=== PATIENT | male | born 1995 | race Caucasian/White ===

== ENCOUNTER 2022-01-05 22:31 | Observation (INO) | payer OTHER ==
[~2022-01-05] VITALS: Ht 177.8 cm; Wt 94.2 kg
[2022-01-05] MEDS ORDERED: BASAGLAR K100 UNIT/1 SQ (22:46)
[2022-01-05] MEDS ORDERED: NOVOLOG FLEX100 U/ML SQ (22:47)
[2022-01-05 22:49] LABS: BASO # 0.1 K/mm3 (0.0-0.2); BASO % 0.4 % (0.0-2.0); EOS % 0.1 % (0.0-4.0); GRAN # 8.9 K/mm3 (1.4-6.5); GRAN % 73.5 % (42.2-75.2); HEMATOCRIT 44.6 % (42.0-52.0); HEMOGLOBIN 15.5 g/dl (13.5-18.0); LYMPH # 2.5 K/mm3 (1.2-3.4); LYMPH % 20.2 % (20.0-51.0); MEAN CELL VOLUME 86 fl (80.0-100.0); MEAN CORPUSCULAR HEMOGLOBIN 30 pg (27-31); MEAN CORPUSCULAR HGB CONC 35 g/dl (33.0-37.0); MEAN PLATELET VOLUME 9.5 fl (7.4-10.4); MONO # 0.7 K/mm3 (0.1-0.6); MONO % 5.5 % (1.7-9.3); PLATELET COUNT 269 K/mm3 (130-400); RED BLOOD COUNT 5.21 M/mm3 (4.20-5.60); REDCELL DISTRIBUTION WIDTH-CV 11.8 % (11.5-14.5)
[2022-01-05 23:05] LABS: ALBUMIN 4.4 gm/dL (3.5-5.0); BILIRUBIN,TOTAL 0.9 mg/dL (0.2-1.2); C-REACTIVE PROTEIN 1.6 mg/dL (0.00-0.50); CALCIUM 9.7 mg/dL (8.4-10.2); CREATININE, serum 1.06 mg/dL (0.72-1.25); POTASSIUM 4.5 mmol/L (3.5-4.5); TOTAL PROTEIN 7.6 gm/dL (6.2-8.1)
[2022-01-06] VITALS (9 sets, daily range): BP systolic 115–126; BP diastolic 55–68; PULSE 57–97; TEMP 97.7–99.5
[2022-01-06 00:47] LABS: COLLECTION METHOD CLEAN CATCH
[2022-01-06 00:57] LABS: URINE APPEARANCE Clear (CLEAR/HAZY); URINE BLOOD Negative (NEGATIVE); URINE COLOR Yellow (YELLOW); URINE GLUCOSE 3+ (NEGATIVE); URINE KETONE 4+ (NEGATIVE); URINE NITRATE Negative (NEGATIVE); URINE PROTEIN(semi-quant) Negative (NEGATIVE); URINE UROBILINOGEN 0.2 E.U/dL (0.2-1.0)
[2022-01-06 00:59] LABS: MUCOUS Present (NOT PRESENT); SQUAMOUS EPITHELIAL None Seen /hpf (0-10); URINE BACTERIA Rare /hpf (NONE SEEN); URINE RBC 0-2 /hpf (0-2)
--- NOTE | 2022-01-06 03:20 | NUR ---
PT BROUGHT TO ROOM FROM ED. ADMISSION ASSESSMENT AND MED REC COMPLETE. PT RATES PN A 2/10 IN THE ABDOMEN. NS AND ZOSYN RUNNING IN RIGHT AC. NO NEEDS AT THIS TIME. CALL LIGHT WITHIN REACH.
--- NOTE | 2022-01-06 08:02 | NUR ---
Pt off the floor for surgery at this time
[2022-01-06] MEDS ORDERED: NORCO 325 MG-51 TAB PO (09:25)
[2022-01-06] MEDS ORDERED: MOTRIN 600600 MG/TAB PO (09:25)
--- NOTE | 2022-01-06 11:15 | NUR ---
Pt arrived back from surgery recently. He is drowsy but does wake easily. Pt is afraid of moving to due pain and the fact that he just had surgery. Educated him about the procedure, the incisions that he has and the importance of some activity. Pt wanted to use his own insulin which he has with him. Educated him on the criteria for him to go home. Lap sites x3 to abd with 2 well approximated and one with small gauze and tegaderm which is CDI. All questions answered, call light within reach
--- NOTE | 2022-01-06 13:10 | NUR ---
Pt doing well, but is still drowsy. Pt has been up and voided and has tolerated some lunch. He is wanting to stay a while to get a nap in. Pt had friend go and supervisor opening and picking his prescriptions for him. No other needs, PRN pain medication given
--- NOTE | 2022-01-06 15:00 | NUR ---
PT resting with eyes closed, even non labored breathing. Friend in room at this time
--- NOTE | 2022-01-06 15:51 | NUR ---
Pt resting with eyes closed, even non labored breathing, friend available in room
--- NOTE | 2022-01-06 16:45 | NUR ---
PT ready for discharge. Pt reports that his pain is a constant 5/10. Did get some mortrin for him prior to discharge. Reviewed discharge instructions with him and inforced the importance of taking frequent walks. INT removed from right AC. Discussed calling tomorrow for follow up appointment and the prescriptions in which he is going home with. Pt asked of help getting out of bed. Educated on to get out on his own. He then wanted help standing. Stated that he needs to do that on his own and pt did stand without any difficulty. Pt escorted out at this time
== END 2022-01-06 16:48 | disposition home or self-care (01) ==
LOC: COL.ER 22:31 → SURG 01-06 01:21
PROVIDERS: Nurse Practitioner; ADMIT Surgery
DX: K35.80 Unspecified acute appendicitis (principal); E10.9 Type 1 diabetes mellitus without complications; Z79.4 Long term (current) use of insulin; Z79.899 Other long term (current) drug therapy
CPT/HCPCS: G0378; J0690; J1170; J2270; J2405; J2543; J2704; J3010; J7030; Q9967